=== PATIENT | male | born 1965 | race Asian ===

== ENCOUNTER 2024-11-05 11:41 | Outpatient (AMB) | payer OTHER, SELFPAY ==
--- NOTE | 2024-11-05 11:43 | MHC.OFFVIS ---
Intake Visit Reasons: 6 Months F/U Allergies No Known Allergies Allergy (Verified 11/05/24 11:44) HPI Comments Details: He was doing okay. Sleep was okay, using CPAP every night and wakes feeling refreshed. No headaches. Memory was stable. Burning in feet and legs was better. No falls. No further syncopal episodes. MRI brain and EEG were normal. Gets a lot of allergies in the spring with congestion and itchy eyes. Stopped allergy shots in 2023. He has loud snoring most of the night off CPAP, stops breathing at times and has excessive daytime sleepiness. He had sudden syncopal episode with some seizure-like activity on 04/16/2013. He was sitting, got up, took 6-7 steps, started to feel faint, and tried to lower himself to the ground, but fell without any injury. He had some drooling from the mouth and some shaking and twitching in his hands. He was out for less than 30 seconds and woke up without any incontinence or postictal confusion. When he came to, he had some stomach cramps. There was no chest pain or palpitation. His EKG was unremarkable. There is no previous history of syncope or seizure, none since. No history of head trauma. He has history of borderline hypertension intermittently, hypercholesterolemia, and vitamin D deficiency. [facility] Medical History (Updated 11/05/24 @ 11:48 by Cristal Lucas CNP) Sinusitis Hypertension RAPHAEL (obstructive sleep apnea) Vitamin D deficiency Essential hypertension Other convulsions Syncope and collapse Review of Systems Const Denies chills, Denies daytime sleepiness, Denies difficulty sleeping, Denies fatigue, Denies fever(s), Denies frequent falls, Denies headache(s), Denies increased appetite, Denies poor appetite, Denies snoring, Denies weakness, Denies weight gain and Denies weight loss Eyes Denies loss of vision ENT Denies vertigo, Denies dizziness, Denies headache(s) and Denies neck pain Card Denies chest pain at rest, Denies chest pain with activity, Denies syncope, Denies leg edema, Denies palpitations, Denies dyspnea and Denies dyspnea on exertion Resp Denies cough, Denies dyspnea, Denies dyspnea on exertion and Denies snoring GI Denies abdominal pain, Denies constipation, Denies heartburn, Denies diarrhea and Denies nausea Denies urinary frequency, Denies urinary incontinence and Denies urinary urgency Musc Denies abnormal gait, Denies back pain, Denies myalgias, Denies arthralgias, Denies neck pain, Reports numbness and Reports tingling Neuro Denies abnormal gait, Denies vertigo, Denies dizziness, Denies syncope, Denies frequent falls, Denies headache(s), Denies lack of coordination, Denies loss of vision, Denies memory loss, Reports numbness, Denies Other visual disturbances, Denies restless legs, Denies seizure-like activity, Reports tingling, Denies paresthesias, Denies tremor(s) and Denies weakness Psych Denies anxiety, Denies depression, Denies auditory hallucinations, Denies memory loss and Denies visual hallucinations Endo Denies fatigue and Denies palpitations Physical Exam Const Other: General Appearance:? normal, in no acute distress. Heart:? S1, S2 normal, no murmurs. Lungs:? clear anteriorly and posteriorly. Musculoskeletal:? normal. Extremities:? no edema. Psych:? alert, oriented, cognitive function intact, cooperative with exam. Neuro Other: Abnormal Neurological Findings:?none.? Mental Status: alert and oriented X 3. Normal attention, orientation, memory, and affect. Cranial Nerves: Pupils are equal, round, and reactive to light. External ocular muscles are intact. Visual [place] are full, no ptosis. Face is symmetrical, no facial weakness or droop. Facial sensations are normal. Tongue protrudes in midline. Palate elevates symmetrically. Shoulder shrugging is normal Motor Examination: Normal muscle tone, bulk and strength. No atrophy or fasciculations. No drift of the extended upper extremities. DTR 2+. Plantars are flexor. Sensory Exam: Normal light touch, temperature, pinprick, vibration, and joint-position sensations. Rhomberg sign is absent. Coordination: No ataxia. No titubation. Gait Exam: Within normal limits. Cerebellar Signs: [id number] is okay. Extrapyramidal System: No tremor, rigidity with normal facial expressions. No bradykinesia. No bradyphrenia. Normal arm swing and posture. No propulsion or retropulsion. Speech: Normal. Results Reviewed Results Reviewed: 06/26/13: EEG: This waking EEG is within normal limits. MRI brain normal. Assessment & Plan Assessment & Plan (1) RAPHAEL (obstructive sleep apnea): Code(s): G47.33 - Obstructive sleep apnea (adult) (pediatric) Category: Medical Plan: Continue using CPAP nightly. (2) Syncope and collapse: Code(s): R55 - Syncope and collapse Category: Medical Plan CPAP: 12-14cm Coding Level of Care Code Est Pt Level 3 (57436) Diagnoses RAPHAEL (obstructive sleep apnea) G47.33 Syncope and collapse R55
--- OUTSIDE RECORDS SUMMARY | 2024-11-05 12:13 | XMS_ITS | Clinical Summary ---
Author Organization [address] [place] [address] Address [address] [place] [address] Phone Care Team Providers Care Pharmacy Sales Representative Name Role Phone Marisol Serra MD Primary Care Provider [phone] Allergies Active Allergy Reactions Criticality Noted Date Comments Lisinopril 05/14/2015 Mold 10/25/2014 Nut - Unspecified 04/01/2021 Pollen Extracts 09/02/2011 Medications betamethasone, augmented, (DIPROLENE) 0.05 % ointment 3 Active fluticasone propionate (FLONASE) 50 mcg/actuation nasal spray 2 sprays 1 (one) time each day. NASAL ROUTE 4 Active fluticasone furoate-vilant Asa (BREO ELLIPTA) 100-25 mcg/dose inhaler Inhale 1 puff by mouth 1 (one) time each day. 8 Active ketoconazole (NIZORAL) 2 % cream Apply locally twice a day 4 Active ketoconazole (NIZORAL) 2 % shampoo 3 (three) times a week. to wash the scalp 4 07/18/19 26 Active cholecalcifero l (VITAMIN D-3) 125 mcg (5,000 unit) capsule TAKE 1 CAPSULE BY MOUTH EVERY DAY 90 capsule 3 5 Active valsartan (DIOVAN) 80 mg tablet TAKE 1 TABLET BY MOUTH EVERY DAY 90 tablet 3 5 Active valsartan (DIOVAN) 80 mg tablet Take 1 tablet (80 mg total) by mouth 1 (one) time each day. 4 10/11/19 25 Discontinued Active Problems Problem Noted Date Diagnosed Date Tinea capitis 09/04/2021 COVID 04/01/2021 Hyperlipidemia 12/01/2016 Hypertension 12/01/2016 Obstructive sleep apnea 12/01/2016 Allergic rhinitis 10/25/2014 Vitamin D deficiency 02/11/2014 GERD (gastroesophageal reflux disease) 3 Encounters Date Type Department Care Team Description 10/25/2024 Telephone Gastroenterology - [place] [address] [place] [address] Javier Arana DO special procedure 08/15/2024 9:30 AM EDT Office Visit Internal Medicine - [place] [address] [place] [address] Marisol Serra MD Adult general medical examination (Primary Dx); Screening for colorectal cancer; Mixed hyperlipidemia; Primary hypertension; Obstructive sleep apnea; Vitamin D deficiency; Screening for malignant neoplasm of prostate from Last 3 Months Immunizations Name Administration Dates Next Due Influenza Quadravalent, MDCK , 0.5ml, preservative free (Flucelvax) 6mo and older 02/02/2019 Tdap Tetanus diptheria acell ular pertussis (Boostrix; Adacel) 7yo and older 09/02/2011 Medical History Medical History Date Comments Allergic rhinitis 10/25/2014 DX:Allergic rh initis GERD (gastroesophageal reflux disease) 12/07/2012 DX:GERD (gastroesophageal reflux disease) Hyperlipidemia 12/01/2016 DX:Hyperlipidemi a Hypertension 12/01/2016 DX:Hypertension Obstructive sleep apnea 12/01/2016 DX:Obstr uctive sleep apnea Vitamin D deficiency 02/11/2014 DX:Vitamin D deficiency Social History Tobacco Use Types Packs/Day Years Used Date Smoking Tobacco: Never Smokeless Tobacco: Never Tobacco Cessation:Counseling Given: Not Answered Alcohol Use Standard Drinks/Week Comments No 0 (1 standard drink = 0.6 oz pur e alcohol) Sex and Gender Information Value Date Recorded Sex Assigned at Not on file Legal Sex Male 6:19 AM EST Gender Identity Not on file Sexual Orientation Not on file Obstetrics History Last Filed Vital Signs Vital Sign Reading Time Taken Comments Blood Pressure 128/80 08/15/2024 9:24 AM EDT Pulse 75 08/15/2024 9:24 AM EDT Temperature 36.4 C (97.5 F) 08/15/2024 9:24 AM EDT Respiratory Rate - - Oxygen Saturation 98% 08/15/2024 9:24 AM EDT Inhaled Oxygen Concentration - - Weight 104 kg (229 lb) 08/15/2024 9:24 AM EDT Height 165.1 cm (5' 5 ) 08/11/2023 9:33 AM EDT Body Mass Index 38.11 08/11/2023 9:33 AM EDT Plan of Treatment Upcoming Encounters Date Type Department Care Team (Late st Contact Info) Description 01/11/2025 10:30 AM EDT Office Visit Internal Medicine - [place] [address] [place] [address] Marisol Serra MD [address] [place] [address] Health Maintenance Due Date Last Done Comments Hepatitis B Vaccines (1 of 3 - 19+ 3-dose series) 1984 Zoster Vaccines (1 of 2) 07/01/2015 DTaP,Tdap,and Td Vaccines (2 - Td or Tdap) 09/01/2021 09/02/2011 Colorectal Cancer Screening: Colonoscopy 03/06/2022 HIV Screening 03/06/2022 Hepatitis C Screening 03/06/2022 Social Influencers of Health Screening 03/06/2022 COVID-19 Vaccine ( season) 2023 06/20/2021, 08/16/2020, 07/26/2020 Depression Screening 03/28/2024 Hypertension/CHF/CAD Annual BMP Blood Test 08/10/2024 08/11/2023, 08/11/2023 Influenza Vaccine (#1) 2024 3, 04/02/2022, 01/17/2021, Additional history exists Cholesterol Screening (Lipid Panel) 08/10/2028 08/11/2023, 08/11/2023 RSV Immunization Adult Patients (1 - 1-dose 75+ series) 2040 Pneumococcal Vaccine: 50+ Years Completed 01/08/2023 HIB Vaccines Aged Out No longer eligi ble based on patient's age to complete this topic HPV Vaccines Aged Out No longer eligi ble based on patient's age to complete this topic Hepatitis A Vaccines Aged Out No long er eligible based on patient's age to complete this topic IPV Vaccines Aged Out No longer eligi ble based on patient's age to complete this topic MMR Vaccines Aged Out No longer eligi ble based on patient's age to complete this topic Meningococcal ACWY Vaccine Aged Out N o longer eligible based on patient's age to complete this topic Meningococcal B Vaccine Aged Out No l onger eligible based on patient's age to complete this topic RSV Immunization Patients Under 20 months Aged Out No longer eligible based on patient's age to complete this topic Varicella Vaccines Aged Out No longer eligible based on patient's age to complete this topic Procedures Procedure Name Priority Date/Time Associated Diagnosis Comments ANNUAL BMP BLOOD TEST Routine 08/11/2023 LIPID PANEL Routine 08/11/2023 from Last 3 Months or Most Recently Relevant to Health Maintenance Results * Annual BMP Blood Test (08/11/2023) Pathologist [facility] Annual BMP Blood Test Abstracted Historical Provider HEALTH MAINTENANCE Final Result * (ABNORMAL) Lipid panel (08/11/2023) Pathologist [facility] LDL/HDL Ratio 3 0 - 4 Triglycerides 199(A) 0 - 150 mg/dL Cholesterol 186 0 - 200 mg/dL HDL 67 >=40 mg/dL LDL Cholesterol 80 0 - 100 mg/dL Blood Venous blood specimen / Unknown Historical Provider LAB BLOOD ORDERABLES [place] [facility] Result from Last 3 Months or Most Recently Relevant to Health Maintenance Insurance [employer] Care Teams Pharmacy Sales Representative Relationship Specialty Start Date End Date Marisol Serra MD [address] [place] [phone] PCP - General Internal Medicine 05/24/13
--- OUTSIDE RECORDS SUMMARY | 2024-11-05 12:13 | XMS_ITS ---
Author Name [facility] Organization Unknown Care Team Organization Name Specialty Phone Email Start Date End Da te [facility] Primary Care 02/02/2022 11/14/19 24
== END 2024-11-05 11:59 | disposition home or self-care (01) ==
LOC: HO.HSM 11:42
PROVIDERS: PCP Internal Medicine; Referring Provider Internal Medicine; Visit Provider Registered Nurse
DX: G47.33 Obstructive sleep apnea (adult) (pediatric) (principal); R55 Syncope and collapse
CPT/HCPCS: 99213